=== PATIENT | male | born 1950 | race Caucasian/White ===

== ENCOUNTER 2019-12-21 13:54 | Inpatient (IN) ==
[2019-12-21] MEDS ORDERED: Nitroglycerin 0.4 MG TAB.SUBL SL PRN (14:37)
[2019-12-21] MEDS ORDERED: Furosemide 40 MG/4 ML VIAL IVP ONE ×2 (14:38→18:15)
[2019-12-21 15:35] LABS: Basophils % 0.5 %; Eosinophils # 0.2 K/mcL (0.0-0.6); Eosinophils % 3.1 %; Hematocrit 36.6 % (37.5-50.1); Immature Granulocytes % 0.3 % (0-4); Immature Platelets 6.9 % (1.1-6.1); Lymphocytes # 0.9 K/mcL (0.6-4.6); Lymphocytes % 13.8 %; Mean Corpuscular HGB Conc 30.1 g/dL (31.6-35.5); Mean Corpuscular Hemoglobin 25.8 pg (28.0-33.3); Mean Corpuscular Volume 85.7 fL (83.0-100.0); Mean Platelet Volume 12.6 fL (9.4-12.4); Monocytes % 8.4 %; Neutrophils # 4.8 K/mcL (1.6-8.9); Red Blood Count 4.27 M/mcL (4.19-5.50); Red Cell Distribution Width 17.2 % (11.5-14.5); Segmented Neutrophils % 73.9 %; White Blood Count 6.5 K/mcL (4.3-11.1)
[2019-12-21 15:37] LABS: INR 1.4; Prothrombin Time 16.2 Seconds (9.4-12.1)
[2019-12-21 15:40] LABS: Activated Partial Thrombo Time 34.7 Seconds (26.0-36.0)
[2019-12-21 15:50] LABS: Monocytes # 0.6 K/mcL (0.0-1.3)
[2019-12-21 15:51] LABS: Platelet Count 92 K/mcL (140-400); Platelet Estimate Decreased (Normal)
[2019-12-21 15:52] LABS: Calcium 8.8 mg/dL (8.6-10.3); Potassium 4.4 mEq/L (3.5-5.1)
[2019-12-21 16:02] LABS: Troponin I 0.05 ng/mL (< 0.04)
[2019-12-21] MEDS ORDERED: Naloxone 0.4 MG/ML INJ IVP PRN (17:30)
[2019-12-21] MEDS ORDERED: Bumetanide 1 MG TABLET PO SCH (17:45)
[2019-12-21 18:13] LABS: Chol/HDL Ratio 9.4 (0-4.9); Magnesium 2.1 mg/dL (1.6-2.6); Phosphorous 3.5 mg/dL (2.7-4.5)
[2019-12-21] MEDS: Aspirin Enteric Coated 81 MG Tablet PO SCH (18:24)
[2019-12-21] MEDS: carvediloL 6.25 MG TABLET PO SCH (18:24)
[2019-12-21] MEDS ORDERED: D5% in Water 1,000 ML IVC PRN (18:26)
[2019-12-21] MEDS ORDERED: Dextrose Gel 15 GM/37.5 ML TUBE PO PRN ×2 (18:26)
[2019-12-21] MEDS ORDERED: *HR* Dextrose 50 % in Water (Syg) 50 ML SYRINGE IVP PRN (18:26)
[2019-12-21] MEDS: Insulin LISPRO 300 UNITS/3 ML VIAL SQ SCH (20:02)
[2019-12-21] MEDS: rOPINIRole 1 MG TABLET PO SCH (20:08)
[2019-12-21] MEDS: Insulin DETEMIR 100 UNIT/ML X5UNITS SQ SCH (20:08)
[2019-12-22 04:45] LABS: Basophils % 0.6 %; Red Blood Count 4.16 M/mcL (4.19-5.50); Red Cell Distribution Width 17.2 % (11.5-14.5)
[2019-12-22 04:47] LABS: Eosinophils # 0.2 K/mcL (0.0-0.6); Eosinophils % 3.8 %; Hematocrit 35.1 % (37.5-50.1); Hemoglobin 10.8 g/dL (12.9-16.9); Immature Granulocytes % 0.5 % (0-4); Immature Platelets 8.5 % (1.1-6.1); Lymphocytes % 15.3 %; Mean Corpuscular HGB Conc 30.8 g/dL (31.6-35.5); Mean Corpuscular Volume 84.4 fL (83.0-100.0); Mean Platelet Volume 12.3 fL (9.4-12.4); Monocytes # 0.6 K/mcL (0.0-1.3); Monocytes % 8.7 %; Neutrophils # 4.5 K/mcL (1.6-8.9); Segmented Neutrophils % 71.1 %; White Blood Count 6.3 K/mcL (4.3-11.1)
[2019-12-22 04:53] LABS: INR 1.4; Prothrombin Time 16.4 Seconds (9.4-12.1)
[2019-12-22 05:03] LABS: Calcium 8.8 mg/dL (8.6-10.3)
[2019-12-22 05:09] LABS: Platelet Count 95 K/mcL (140-400)
[2019-12-22] MEDS ORDERED: lisinopriL 20 MG TABLET PO SCH ×2 (09:00)
[2019-12-22] MEDS: Isosorbide MONOnitrate (24 HR) 60 MG TAB.ER.24H PO SCH (09:38)
[2019-12-22] MEDS: Furosemide 40 MG/4 ML VIAL IVP SCH ×2 (09:39→16:30)
[2019-12-22] MEDS: Insulin LISPRO 300 UNITS/3 ML VIAL SQ SCH ×4 (09:39→20:55)
[2019-12-22] MEDS: carvediloL 6.25 MG TABLET PO SCH ×3 (09:40→17:45)
[2019-12-22] MEDS: metOLazone 2.5 MG TABLET PO SCH (09:41)
[2019-12-22] MEDS: Aspirin Enteric Coated 81 MG Tablet PO SCH (16:30)
[2019-12-22] MEDS: Insulin DETEMIR 100 UNIT/ML X5UNITS SQ SCH (21:01)
[2019-12-22] MEDS: rOPINIRole 1 MG TABLET PO SCH (21:01)
[2019-12-23 02:08] LABS: Basophils % 0.7 %; Eosinophils # 0.2 K/mcL (0.0-0.6); Eosinophils % 3.8 %; Hematocrit 36.5 % (37.5-50.1); Hemoglobin 10.8 g/dL (12.9-16.9); Immature Granulocytes % 0.3 % (0-4); Lymphocytes # 1.1 K/mcL (0.6-4.6); Lymphocytes % 18.5 %; Mean Corpuscular HGB Conc 29.6 g/dL (31.6-35.5); Mean Corpuscular Hemoglobin 25.5 pg (28.0-33.3); Mean Corpuscular Volume 86.3 fL (83.0-100.0); Monocytes # 0.5 K/mcL (0.0-1.3); Monocytes % 8.2 %; Neutrophils # 4.2 K/mcL (1.6-8.9); Platelet Count 106 K/mcL (140-400); Red Blood Count 4.23 M/mcL (4.19-5.50); Red Cell Distribution Width 17.2 % (11.5-14.5); Segmented Neutrophils % 68.5 %; White Blood Count 6.1 K/mcL (4.3-11.1)
[2019-12-23 02:23] LABS: Calcium 9.1 mg/dL (8.6-10.3); Potassium 4.2 mEq/L (3.5-5.1)
[2019-12-23] MEDS: Furosemide 40 MG/4 ML VIAL IVP SCH ×2 (07:59→16:34)
[2019-12-23] MEDS: Isosorbide MONOnitrate (24 HR) 60 MG TAB.ER.24H PO SCH (07:59)
[2019-12-23] MEDS: carvediloL 6.25 MG TABLET PO SCH ×2 (07:59→16:34)
[2019-12-23] MEDS: Insulin LISPRO 300 UNITS/3 ML VIAL SQ SCH ×4 (07:59→21:05)
[2019-12-23] MEDS ORDERED: Furosemide 20 MG/2 ML VIAL IVP ONE (11:07)
[2019-12-23] MEDS ORDERED: Acetaminophen 325 MG TABLET PO PRN (12:57)
[2019-12-23] MEDS: Aspirin Enteric Coated 81 MG Tablet PO SCH (16:34)
[2019-12-23] MEDS: rOPINIRole 1 MG TABLET PO SCH (21:05)
[2019-12-23] MEDS: Insulin DETEMIR 100 UNIT/ML X5UNITS SQ SCH (21:19)
[2019-12-24 06:50] LABS: Immature Granulocytes % 0.3 % (0-4); Platelet Count 109 K/mcL (140-400)
[2019-12-24 06:52] LABS: Basophils % 0.5 %; Eosinophils # 0.3 K/mcL (0.0-0.6); Hematocrit 38.3 % (37.5-50.1); Hemoglobin 11.5 g/dL (12.9-16.9); Immature Platelets 7.3 % (1.1-6.1); Lymphocytes # 0.9 K/mcL (0.6-4.6); Lymphocytes % 14.9 %; Mean Corpuscular Hemoglobin 25.4 pg (28.0-33.3); Mean Corpuscular Volume 84.7 fL (83.0-100.0); Monocytes # 0.5 K/mcL (0.0-1.3); Monocytes % 7.8 %; Neutrophils # 4.6 K/mcL (1.6-8.9); Red Blood Count 4.52 M/mcL (4.19-5.50); Red Cell Distribution Width 17.1 % (11.5-14.5); Segmented Neutrophils % 72.5 %; White Blood Count 6.3 K/mcL (4.3-11.1)
[2019-12-24 07:15] LABS: Calcium 9.5 mg/dL (8.6-10.3)
[2019-12-24] MEDS: Insulin LISPRO 300 UNITS/3 ML VIAL SQ SCH ×4 (07:25→20:06)
[2019-12-24] MEDS: carvediloL 6.25 MG TABLET PO SCH ×2 (07:33→16:27)
[2019-12-24] MEDS: Furosemide 40 MG/4 ML VIAL IVP SCH ×2 (07:33→16:27)
[2019-12-24] MEDS: Isosorbide MONOnitrate (24 HR) 60 MG TAB.ER.24H PO SCH (07:33)
[2019-12-24] MEDS ORDERED: Furosemide 20 MG/2 ML VIAL IVP ONE ×2 (08:08→18:00)
[2019-12-24] MEDS: Aspirin Enteric Coated 81 MG Tablet PO SCH (17:56)
[2019-12-24] MEDS: Insulin DETEMIR 100 UNIT/ML X5UNITS SQ SCH (20:07)
[2019-12-24] MEDS: rOPINIRole 1 MG TABLET PO SCH (20:07)
[2019-12-25 02:46] LABS: Basophils % 0.6 %; Eosinophils # 0.2 K/mcL (0.0-0.6); Eosinophils % 3.6 %; Hematocrit 37.4 % (37.5-50.1); Hemoglobin 11.3 g/dL (12.9-16.9); Immature Granulocytes % 0.5 % (0-4); Immature Platelets 5.6 % (1.1-6.1); Lymphocytes # 1.1 K/mcL (0.6-4.6); Lymphocytes % 16.2 %; Mean Corpuscular HGB Conc 30.2 g/dL (31.6-35.5); Mean Corpuscular Hemoglobin 25.5 pg (28.0-33.3); Mean Corpuscular Volume 84.4 fL (83.0-100.0); Mean Platelet Volume 12.1 fL (9.4-12.4); Monocytes # 0.6 K/mcL (0.0-1.3); Monocytes % 8.6 %; Neutrophils # 4.7 K/mcL (1.6-8.9); Platelet Count 108 K/mcL (140-400); Red Blood Count 4.43 M/mcL (4.19-5.50); Red Cell Distribution Width 17.1 % (11.5-14.5); Segmented Neutrophils % 70.5 %; White Blood Count 6.6 K/mcL (4.3-11.1)
[2019-12-25 03:04] LABS: Calcium 9.7 mg/dL (8.6-10.3); Potassium 3.8 mEq/L (3.5-5.1)
[2019-12-25] MEDS: Isosorbide MONOnitrate (24 HR) 60 MG TAB.ER.24H PO SCH (09:21)
[2019-12-25] MEDS: Furosemide 40 MG/4 ML VIAL IVP SCH (09:21)
[2019-12-25] MEDS: Insulin LISPRO 300 UNITS/3 ML VIAL SQ SCH ×4 (09:21→20:03)
[2019-12-25] MEDS: carvediloL 6.25 MG TABLET PO SCH ×2 (09:21→16:35)
[2019-12-25] MEDS ORDERED: Bumetanide 1 MG TABLET PO SCH (11:30)
[2019-12-25] MEDS: Bumetanide 1 MG TABLET PO SCH (16:35)
[2019-12-25] MEDS: Aspirin Enteric Coated 81 MG Tablet PO SCH (16:35)
[2019-12-25] MEDS ORDERED: carvediloL 6.25 MG TABLET PO SCH (17:00)
[2019-12-25] MEDS: Insulin DETEMIR 100 UNIT/ML X5UNITS SQ SCH (20:00)
[2019-12-25] MEDS: rOPINIRole 1 MG TABLET PO SCH (20:00)
[2019-12-26 05:42] LABS: Basophils % 0.6 %; Eosinophils # 0.3 K/mcL (0.0-0.6); Eosinophils % 3.8 %; Hematocrit 38.5 % (37.5-50.1); Hemoglobin 11.6 g/dL (12.9-16.9); Immature Granulocytes % 0.5 % (0-4); Lymphocytes % 15.1 %; Mean Corpuscular HGB Conc 30.1 g/dL (31.6-35.5); Mean Corpuscular Hemoglobin 25.8 pg (28.0-33.3); Mean Corpuscular Volume 85.6 fL (83.0-100.0); Mean Platelet Volume 11.9 fL (9.4-12.4); Monocytes # 0.7 K/mcL (0.0-1.3); Monocytes % 11.1 %; Neutrophils # 4.5 K/mcL (1.6-8.9); Platelet Count 116 K/mcL (140-400); Red Cell Distribution Width 17.2 % (11.5-14.5); Segmented Neutrophils % 68.9 %; White Blood Count 6.5 K/mcL (4.3-11.1)
[2019-12-26 05:49] LABS: Calcium 9.4 mg/dL (8.6-10.3)
[2019-12-26 07:46] VITALS: BP 189/80
[2019-12-26] MEDS: Bumetanide 1 MG TABLET PO SCH (07:53)
[2019-12-26] MEDS: carvediloL 6.25 MG TABLET PO SCH (07:53)
[2019-12-26] MEDS: metOLazone 2.5 MG TABLET PO SCH (07:54)
[2019-12-26] MEDS: Isosorbide MONOnitrate (24 HR) 60 MG TAB.ER.24H PO SCH (07:54)
[2019-12-26] MEDS: Insulin LISPRO 300 UNITS/3 ML VIAL SQ SCH (07:54)
== END 2019-12-26 09:12 | disposition home or self-care (01) | DRG 291 ==
LOC: 3BNU 13:54 → EMEROOARM 13:54 → 3BNU 18:15 → SUATTDRO 18:53
PROVIDERS: ADMIT Internal Medicine; ATTEND Internal Medicine

== ENCOUNTER 2020-06-13 15:03 | Inpatient (IN) ==
[2020-06-13 16:36] LABS: Basophils # 0.1 K/mcL (0.0-0.2); Basophils % 0.7 %; Eosinophils # 0.1 K/mcL (0.0-0.6); Eosinophils % 1.3 %; Hematocrit 38.1 % (37.5-50.1); Hemoglobin 11.4 g/dL (12.9-16.9); Immature Granulocytes % 0.5 % (0-4); Lymphocytes % 8.7 %; Mean Corpuscular HGB Conc 29.9 g/dL (31.6-35.5); Mean Corpuscular Hemoglobin 25.8 pg (28.0-33.3); Mean Corpuscular Volume 86.2 fL (83.0-100.0); Mean Platelet Volume 11.9 fL (9.4-12.4); Monocytes # 0.9 K/mcL (0.0-1.3); Monocytes % 8.2 %; Neutrophils # 8.8 K/mcL (1.6-8.9); Platelet Count 135 K/mcL (140-400); Red Blood Count 4.42 M/mcL (4.19-5.50); Segmented Neutrophils % 80.6 %; White Blood Count 10.9 K/mcL (4.3-11.1)
[2020-06-13 17:02] LABS: Calcium 9.5 mg/dL (8.6-10.3); Potassium 4.9 mEq/L (3.5-5.1); Troponin I 0.07 ng/mL (< 0.04)
[2020-06-13] MEDS ORDERED: Ampicillin/Sulbactam 1,500 MG in 0.9 % Sodium Chloride Mini Bag 100 ML IVPB ONE (17:31)
[2020-06-13] MEDS ORDERED: Furosemide 40 MG/4 ML VIAL IVP ONE (17:31)
[2020-06-13] MEDS ORDERED: Naloxone 0.4 MG/ML INJ IVP PRN (18:22)
[2020-06-13] MEDS ORDERED: Acetaminophen 325 MG TABLET PO PRN (18:22)
[2020-06-13] MEDS ORDERED: Ondansetron ODT 4 MG TAB.RAPDIS SL PRN (18:22)
[2020-06-13] MEDS ORDERED: *HR* Dextrose 50 % in Water (Vial) 50 ML VIAL IVP PRN (18:53)
[2020-06-13] MEDS ORDERED: Dextrose Gel 15 GM/37.5 ML TUBE PO PRN ×2 (18:53)
[2020-06-13] MEDS ORDERED: D5% in Water 1,000 ML IVC PRN (18:53)
[2020-06-13] MEDS: Furosemide 40 MG/4 ML VIAL IVP SCH (22:05)
[2020-06-13] MEDS: carvediloL 6.25 MG TABLET PO SCH (22:06)
[2020-06-13] MEDS: rOPINIRole 1 MG TABLET PO SCH (22:06)
[2020-06-13] MEDS: *HR* HYDROcodone/Acet 5/325 mg TABLET PO PRN (22:13)
[2020-06-13] MEDS: Insulin LISPRO 300 UNITS/3 ML VIAL SQ SCH (22:15)
[2020-06-14] MEDS: Piperacillin/Tazobactam 3.375 GM in 0.9 % Sodium Chloride Mini Bag 100 ML IVPB SCH ×4 (00:35→23:35)
[2020-06-14 05:10] LABS: Basophils # 0.1 K/mcL (0.0-0.2); Basophils % 0.6 %; Eosinophils # 0.1 K/mcL (0.0-0.6); Eosinophils % 1.3 %; Hematocrit 31.9 % (37.5-50.1); Immature Granulocytes % 0.4 % (0-4); Lymphocytes % 9.7 %; Mean Corpuscular Hemoglobin 26.9 pg (28.0-33.3); Mean Corpuscular Volume 86.7 fL (83.0-100.0); Mean Platelet Volume 12.2 fL (9.4-12.4); Monocytes % 9.9 %; Neutrophils # 7.7 K/mcL (1.6-8.9); Platelet Count 102 K/mcL (140-400); Red Blood Count 3.68 M/mcL (4.19-5.50); Segmented Neutrophils % 78.1 %; White Blood Count 9.9 K/mcL (4.3-11.1)
[2020-06-14 05:11] LABS: Hemoglobin 9.9 g/dL (12.9-16.9)
[2020-06-14] MEDS: *HR* Heparin 5,000 UNIT/ML VIAL SQ SCH ×2 (05:11→18:06)
[2020-06-14 05:33] LABS: Calcium 8.7 mg/dL (8.6-10.3); Potassium 4.2 mEq/L (3.5-5.1); Troponin I 0.06 ng/mL (< 0.04)
[2020-06-14] MEDS: carvediloL 6.25 MG TABLET PO SCH ×2 (08:07→18:06)
[2020-06-14] MEDS: Insulin LISPRO 300 UNITS/3 ML VIAL SQ SCH ×4 (08:07→21:12)
[2020-06-14] MEDS: lisinopriL 20 MG TABLET PO SCH (08:08)
[2020-06-14] MEDS: Furosemide 40 MG/4 ML VIAL IVP SCH ×2 (08:13→18:06)
[2020-06-14] MEDS: Isosorbide MONOnitrate (24 HR) 60 MG TAB.ER.24H PO SCH (08:13)
[2020-06-14] MEDS: Cholecalciferol (D-3) 1,000 UNIT (25MCG) TABLET PO SCH (08:13)
[2020-06-14] MEDS: Aspirin Enteric Coated 81 MG Tablet PO SCH (08:13)
[2020-06-14] MEDS: Insulin DETEMIR 100 UNIT/ML X5UNITS SQ SCH (08:14)
[2020-06-14] MEDS: *HR* HYDROcodone/Acet 5/325 mg TABLET PO PRN ×3 (08:22→21:19)
[2020-06-14] MEDS ORDERED: FLUoxetine 20 MG CAPSULE PO SCH (09:00)
[2020-06-14] MEDS: rOPINIRole 1 MG TABLET PO SCH (21:12)
[2020-06-15] MEDS: *HR* Heparin 5,000 UNIT/ML VIAL SQ SCH ×2 (05:22→17:27)
[2020-06-15 06:10] LABS: Hematocrit 30.8 % (37.5-50.1); Hemoglobin 9.3 g/dL (12.9-16.9); Mean Corpuscular HGB Conc 30.2 g/dL (31.6-35.5); Mean Platelet Volume 11.5 fL (9.4-12.4); Platelet Count 100 K/mcL (140-400); Red Blood Count 3.58 M/mcL (4.19-5.50); Red Cell Distribution Width 16.9 % (11.5-14.5); White Blood Count 9.4 K/mcL (4.3-11.1)
[2020-06-15 06:28] LABS: Calcium 8.4 mg/dL (8.6-10.3)
[2020-06-15] MEDS: Aspirin Enteric Coated 81 MG Tablet PO SCH (08:37)
[2020-06-15] MEDS: Isosorbide MONOnitrate (24 HR) 60 MG TAB.ER.24H PO SCH (08:37)
[2020-06-15] MEDS: Insulin DETEMIR 100 UNIT/ML X5UNITS SQ SCH (08:37)
[2020-06-15] MEDS: Cholecalciferol (D-3) 1,000 UNIT (25MCG) TABLET PO SCH (08:37)
[2020-06-15] MEDS: lisinopriL 20 MG TABLET PO SCH (08:37)
[2020-06-15] MEDS: Insulin LISPRO 300 UNITS/3 ML VIAL SQ SCH ×4 (08:38→19:49)
[2020-06-15] MEDS: Furosemide 40 MG/4 ML VIAL IVP SCH (08:38)
[2020-06-15] MEDS: FLUoxetine 20 MG CAPSULE PO SCH (08:38)
[2020-06-15] MEDS: Piperacillin/Tazobactam 3.375 GM in 0.9 % Sodium Chloride Mini Bag 100 ML IVPB SCH ×2 (08:38→16:02)
[2020-06-15] MEDS: carvediloL 6.25 MG TABLET PO SCH ×2 (08:38→17:25)
[2020-06-15] MEDS: *HR* HYDROcodone/Acet 5/325 mg TABLET PO PRN ×2 (08:55→17:25)
[2020-06-15] MEDS: MethylPREDNISolone 40 MG/ML VIAL IVP SCH ×2 (16:02→23:58)
[2020-06-15] MEDS: cefTRIAXone 2,000 MG in Water for inj. (sterile) 20 ML IVP SCH (17:26)
[2020-06-15] MEDS: rOPINIRole 1 MG TABLET PO SCH (19:48)
[2020-06-16 02:19] LABS: Calcium 8.5 mg/dL (8.6-10.3); Phosphorous 5.9 mg/dL (2.7-4.5); Potassium 4.5 mEq/L (3.5-5.1)
[2020-06-16] MEDS: *HR* HYDROcodone/Acet 5/325 mg TABLET PO PRN (02:24)
[2020-06-16 03:15] LABS: Basophils % 0.1 %; Eosinophils % 0.1 %; Hematocrit 31.4 % (37.5-50.1); Hemoglobin 9.6 g/dL (12.9-16.9); Lymphocytes # 0.3 K/mcL (0.6-4.6); Lymphocytes % 3.8 %; Mean Corpuscular HGB Conc 30.6 g/dL (31.6-35.5); Mean Corpuscular Volume 85.1 fL (83.0-100.0); Mean Platelet Volume 11.7 fL (9.4-12.4); Monocytes # 0.1 K/mcL (0.0-1.3); Monocytes % 1.4 %; Neutrophils # 7.6 K/mcL (1.6-8.9); Platelet Count 116 K/mcL (140-400); Red Blood Count 3.69 M/mcL (4.19-5.50); Red Cell Distribution Width 16.6 % (11.5-14.5); Segmented Neutrophils % 93.6 %; White Blood Count 8.1 K/mcL (4.3-11.1)
[2020-06-16] MEDS: *HR* Heparin 5,000 UNIT/ML VIAL SQ SCH ×2 (05:06→16:14)
[2020-06-16] MEDS: FLUoxetine 20 MG CAPSULE PO SCH (08:03)
[2020-06-16] MEDS: lisinopriL 20 MG TABLET PO SCH (08:03)
[2020-06-16] MEDS: Isosorbide MONOnitrate (24 HR) 60 MG TAB.ER.24H PO SCH (08:03)
[2020-06-16] MEDS: Aspirin Enteric Coated 81 MG Tablet PO SCH (08:03)
[2020-06-16] MEDS: Cholecalciferol (D-3) 1,000 UNIT (25MCG) TABLET PO SCH (08:03)
[2020-06-16] MEDS: carvediloL 6.25 MG TABLET PO SCH ×2 (08:03→16:14)
[2020-06-16] MEDS: 0.9 % Sodium Chloride 1,000 ML IVC SCH ×2 (08:04→19:15)
[2020-06-16] MEDS: MethylPREDNISolone 40 MG/ML VIAL IVP SCH ×2 (08:04→16:13)
[2020-06-16] MEDS: Insulin LISPRO 300 UNITS/3 ML VIAL SQ SCH ×4 (08:11→20:10)
[2020-06-16] MEDS: Insulin DETEMIR 100 UNIT/ML X5UNITS SQ SCH (08:15)
[2020-06-16] MEDS ORDERED: Furosemide 40 MG/4 ML VIAL IVP SCH (09:00)
[2020-06-16 14:30] LABS: Calcium 8.4 mg/dL (8.6-10.3); Potassium 4.4 mEq/L (3.5-5.1)
[2020-06-16] MEDS: cefTRIAXone 2,000 MG in Water for inj. (sterile) 20 ML IVP SCH (16:14)
[2020-06-16] MEDS ORDERED: 0.9 % Sodium Chloride 1,000 ML IVC SCH (20:00)
[2020-06-16] MEDS: hydrALAZINE 10 MG TABLET PO PRN (20:09)
[2020-06-16] MEDS: rOPINIRole 1 MG TABLET PO SCH (20:09)
[2020-06-17 02:03] LABS: Hematocrit 31.4 % (37.5-50.1); Hemoglobin 9.6 g/dL (12.9-16.9); Mean Corpuscular HGB Conc 30.6 g/dL (31.6-35.5); Mean Corpuscular Volume 85.1 fL (83.0-100.0); Mean Platelet Volume 12.1 fL (9.4-12.4); Platelet Count 120 K/mcL (140-400); Red Blood Count 3.69 M/mcL (4.19-5.50); Red Cell Distribution Width 16.4 % (11.5-14.5); White Blood Count 10.5 K/mcL (4.3-11.1)
[2020-06-17 02:19] LABS: Calcium 8.2 mg/dL (8.6-10.3); Potassium 4.6 mEq/L (3.5-5.1)
[2020-06-17] MEDS: MethylPREDNISolone 40 MG/ML VIAL IVP SCH (04:22)
[2020-06-17] MEDS: *HR* Heparin 5,000 UNIT/ML VIAL SQ SCH ×2 (04:23→16:56)
[2020-06-17] MEDS: 0.9 % Sodium Chloride 1,000 ML IVC SCH ×3 (04:23→23:47)
[2020-06-17] MEDS: *HR* HYDROcodone/Acet 5/325 mg TABLET PO PRN (04:25)
[2020-06-17] MEDS: Isosorbide MONOnitrate (24 HR) 60 MG TAB.ER.24H PO SCH (08:33)
[2020-06-17] MEDS: Cholecalciferol (D-3) 1,000 UNIT (25MCG) TABLET PO SCH (08:33)
[2020-06-17] MEDS: carvediloL 6.25 MG TABLET PO SCH ×2 (08:34→16:50)
[2020-06-17] MEDS: Insulin LISPRO 300 UNITS/3 ML VIAL SQ SCH ×4 (08:34→19:56)
[2020-06-17] MEDS: FLUoxetine 20 MG CAPSULE PO SCH (08:34)
[2020-06-17] MEDS: Insulin DETEMIR 100 UNIT/ML X5UNITS SQ SCH (08:34)
[2020-06-17] MEDS: Aspirin Enteric Coated 81 MG Tablet PO SCH (08:34)
[2020-06-17] MEDS: predniSONE 20 MG TABLET PO SCH (13:26)
[2020-06-17] MEDS: cefTRIAXone 2,000 MG in Water for inj. (sterile) 20 ML IVP SCH (16:51)
[2020-06-17] MEDS: rOPINIRole 1 MG TABLET PO SCH (19:56)
[2020-06-17] MEDS: hydrALAZINE 10 MG TABLET PO PRN (20:17)
[2020-06-18] MEDS: 0.9 % Sodium Chloride 1,000 ML IVC SCH (02:45)
[2020-06-18] MEDS: *HR* Heparin 5,000 UNIT/ML VIAL SQ SCH (05:19)
[2020-06-18 05:56] LABS: Calcium 7.9 mg/dL (8.6-10.3); Potassium 4.6 mEq/L (3.5-5.1)
[2020-06-18 07:29] VITALS: BP 173/88
[2020-06-18] MEDS: FLUoxetine 20 MG CAPSULE PO SCH (08:39)
[2020-06-18] MEDS: carvediloL 6.25 MG TABLET PO SCH (08:39)
[2020-06-18] MEDS: Cholecalciferol (D-3) 1,000 UNIT (25MCG) TABLET PO SCH (08:39)
[2020-06-18] MEDS: Isosorbide MONOnitrate (24 HR) 60 MG TAB.ER.24H PO SCH (08:39)
[2020-06-18] MEDS: Insulin DETEMIR 100 UNIT/ML X5UNITS SQ SCH (08:40)
[2020-06-18] MEDS: Aspirin Enteric Coated 81 MG Tablet PO SCH (08:40)
[2020-06-18] MEDS: Insulin LISPRO 300 UNITS/3 ML VIAL SQ SCH (08:40)
[2020-06-18] MEDS: predniSONE 20 MG TABLET PO SCH (08:40)
== END 2020-06-18 10:12 | disposition home or self-care (01) | DRG 698 ==
LOC: EMEROOARM 15:03 → 2ANU 15:03 → SUATTDRO 17:59 → 2ANU 19:43
PROVIDERS: ADMIT Family Medicine; ATTEND Internal Medicine

== ENCOUNTER 2020-10-09 11:57 | Observation (INO) ==
[2020-10-09] MEDS ORDERED: Bumetanide 1 MG/4 ML VIAL IVP ONE (13:07)
[2020-10-09] MEDS ORDERED: Morphine Sulfate 2 MG/ML SYRINGE IVP ONE (13:24)
[2020-10-09] MEDS ORDERED: Ondansetron 4 MG/2 ML VIAL IVP ONE (13:24)
[2020-10-09 13:29] LABS: Basophils % 0.5 %; Eosinophils # 0.2 K/mcL (0.0-0.6); Eosinophils % 2.2 %; Hematocrit 34.5 % (37.5-50.1); Hemoglobin 10.7 g/dL (12.9-16.9); Immature Granulocytes % 1.2 % (0-4); Lymphocytes # 0.9 K/mcL (0.6-4.6); Lymphocytes % 11.3 %; Mean Corpuscular Hemoglobin 27.7 pg (28.0-33.3); Mean Corpuscular Volume 89.4 fL (83.0-100.0); Mean Platelet Volume 11.8 fL (9.4-12.4); Monocytes # 0.6 K/mcL (0.0-1.3); Monocytes % 8.4 %; Neutrophils # 5.8 K/mcL (1.6-8.9); Platelet Count 104 K/mcL (140-400); Red Blood Count 3.86 M/mcL (4.19-5.50); Red Cell Distribution Width 15.1 % (11.5-14.5); Segmented Neutrophils % 76.4 %; White Blood Count 7.6 K/mcL (4.3-11.1)
[2020-10-09 13:41] LABS: INR 1.3
[2020-10-09 13:47] LABS: Calcium 9.2 mg/dL (8.6-10.3); Potassium 5.8 mEq/L (3.5-5.1)
[2020-10-09 14:00] LABS: Troponin I 0.05 ng/mL (< 0.04)
[2020-10-09 14:22] LABS: Adenovirus Not Detected (Not Detect); Bordetella Pertussis Not Detected (Not Detect); Chlamydophila pneumoniae Not Detected (Not Detect); Coronavirus 229E Not Detected (Not Detect); Coronavirus HKU1 Not Detected (Not Detect); Coronavirus NL63 Not Detected (Not Detect); Coronavirus OC43 Not Detected (Not Detect); Human Metapneumovirus Not Detected (Not Detect); Human Rhinovirus/Enterovirus Not Detected (Not Detect); Influenza A Subtype 2009 H1 Not Detected (Not Detect); Influenza B Not Detected (Not Detect); Mycoplasma pneumoniae Not Detected (Not Detect); Parainfluenza Virus 1 Not Detected (Not Detect); Parainfluenza Virus 2 Not Detected (Not Detect); Parainfluenza Virus 3 Not Detected (Not Detect); Parainfluenza Virus 4 Not Detected (Not Detect); Respiratory Syncytial Virus Not Detected (Not Detect); SARS-CoV-2 Not Detected (Not Detect)
[2020-10-09] MEDS ORDERED: Aspirin 325 MG TABLET PO ONE (14:42)
[2020-10-09] MEDS ORDERED: Calcium Gluconate 1gm/50mL BAG IVPB ONE (14:45)
[2020-10-09] MEDS ORDERED: *HR* Dextrose 50 % in Water (Vial) 50 ML VIAL IVP ONE (14:45)
[2020-10-09] MEDS ORDERED: Insulin Human Regular 5 UNIT in 0.9 % Sodium Chloride 10 ML IV ONE (14:45)
[2020-10-09] MEDS ORDERED: Aspirin Enteric Coated 81 MG Tablet PO SCH (15:30)
[2020-10-09] MEDS ORDERED: *HR* Dextrose 50 % in Water (Vial) 50 ML VIAL IVP PRN (15:31)
[2020-10-09] MEDS ORDERED: D5% in Water 1,000 ML IVC PRN (15:31)
[2020-10-09] MEDS ORDERED: Dextrose Gel 15 GM/37.5 ML TUBE PO PRN ×2 (15:31)
[2020-10-09] MEDS ORDERED: Naloxone 0.4 MG/ML INJ IVP PRN (15:33)
[2020-10-09] MEDS ORDERED: FLU Vac QV 20-21 (6Month+)/PF 0.5 ML SYRINGE IM ONE (17:46)
[2020-10-09] MEDS: FLUoxetine 20 MG CAPSULE PO SCH (18:25)
[2020-10-09] MEDS: Bumetanide 1 MG TABLET PO SCH (18:25)
[2020-10-09] MEDS: carvediloL 6.25 MG TABLET PO SCH (18:25)
[2020-10-09] MEDS: *HR* Heparin 5,000 UNIT/ML VIAL SQ SCH (18:25)
[2020-10-09] MEDS: Isosorbide MONOnitrate (24 HR) 60 MG TAB.ER.24H PO SCH (18:26)
[2020-10-09] MEDS: lisinopriL 20 MG TABLET PO SCH (18:26)
[2020-10-09] MEDS: Insulin LISPRO 300 UNITS/3 ML VIAL SUBQ SCH ×2 (18:28→21:41)
[2020-10-09] MEDS: rOPINIRole 1 MG TABLET PO SCH (21:43)
[2020-10-09] MEDS: Insulin DETEMIR 100 UNIT/ML X5UNITS SUBQ SCH (23:58)
[2020-10-10 02:35] LABS: Basophils % 0.5 %; Eosinophils # 0.2 K/mcL (0.0-0.6); Eosinophils % 2.6 %; Hematocrit 32.7 % (37.5-50.1); Hemoglobin 10.3 g/dL (12.9-16.9); Immature Granulocytes % 0.9 % (0-4); Lymphocytes # 1.1 K/mcL (0.6-4.6); Lymphocytes % 13.2 %; Mean Corpuscular HGB Conc 31.5 g/dL (31.6-35.5); Mean Corpuscular Hemoglobin 27.8 pg (28.0-33.3); Mean Corpuscular Volume 88.4 fL (83.0-100.0); Mean Platelet Volume 11.7 fL (9.4-12.4); Monocytes # 0.8 K/mcL (0.0-1.3); Monocytes % 9.7 %; Neutrophils # 6.3 K/mcL (1.6-8.9); Red Cell Distribution Width 14.9 % (11.5-14.5); Segmented Neutrophils % 73.1 %; White Blood Count 8.6 K/mcL (4.3-11.1)
[2020-10-10 02:36] LABS: Platelet Count 98 K/mcL (140-400)
[2020-10-10 03:14] LABS: Calcium 9.1 mg/dL (8.6-10.3); Potassium 4.8 mEq/L (3.5-5.1)
[2020-10-10] MEDS: *HR* Heparin 5,000 UNIT/ML VIAL SQ SCH ×2 (06:17→17:22)
[2020-10-10] MEDS: Insulin LISPRO 300 UNITS/3 ML VIAL SUBQ SCH ×4 (07:35→21:01)
[2020-10-10] MEDS: Bumetanide 1 MG TABLET PO SCH ×2 (07:43→17:22)
[2020-10-10] MEDS: Isosorbide MONOnitrate (24 HR) 60 MG TAB.ER.24H PO SCH (07:43)
[2020-10-10] MEDS: carvediloL 6.25 MG TABLET PO SCH ×2 (07:43→17:22)
[2020-10-10] MEDS: Aspirin Enteric Coated 81 MG Tablet PO SCH (07:43)
[2020-10-10] MEDS: Cholecalciferol (D-3) 1,000 UNIT (25MCG) TABLET PO SCH (07:43)
[2020-10-10] MEDS: FLUoxetine 20 MG CAPSULE PO SCH (07:43)
[2020-10-10] MEDS ORDERED: Furosemide 40 MG/4 ML VIAL IVP ONE (09:00)
[2020-10-10] MEDS ORDERED: Acetaminophen 325 MG TABLET PO PRN (15:44)
[2020-10-10] MEDS: rOPINIRole 1 MG TABLET PO SCH (20:28)
[2020-10-10] MEDS: Insulin DETEMIR 100 UNIT/ML X5UNITS SUBQ SCH (20:29)
[2020-10-11 02:46] LABS: Basophils % 0.5 %; Eosinophils # 0.2 K/mcL (0.0-0.6); Eosinophils % 2.8 %; Hematocrit 35.1 % (37.5-50.1); Hemoglobin 10.7 g/dL (12.9-16.9); Immature Granulocytes % 1.5 % (0-4); Lymphocytes # 1.2 K/mcL (0.6-4.6); Lymphocytes % 15.4 %; Mean Corpuscular HGB Conc 30.5 g/dL (31.6-35.5); Mean Corpuscular Hemoglobin 27.2 pg (28.0-33.3); Mean Corpuscular Volume 89.3 fL (83.0-100.0); Mean Platelet Volume 11.9 fL (9.4-12.4); Monocytes # 0.7 K/mcL (0.0-1.3); Neutrophils # 5.3 K/mcL (1.6-8.9); Platelet Count 116 K/mcL (140-400); Red Blood Count 3.93 M/mcL (4.19-5.50); Segmented Neutrophils % 70.8 %; White Blood Count 7.5 K/mcL (4.3-11.1)
[2020-10-11 03:02] LABS: Albumin 3.6 g/dL (3.5-5.7); Calcium 9.1 mg/dL (8.6-10.3); Phosphorous 5.8 mg/dL (2.7-4.5); Potassium 4.3 mEq/L (3.5-5.1)
[2020-10-11] MEDS: *HR* Heparin 5,000 UNIT/ML VIAL SQ SCH ×2 (06:09→16:54)
[2020-10-11] MEDS: Insulin LISPRO 300 UNITS/3 ML VIAL SUBQ SCH ×4 (07:38→21:22)
[2020-10-11] MEDS: SODIUM ZIRCONIUM CYCLOSILICATE 5 GM POWD.PACK PO SCH (08:02)
[2020-10-11] MEDS: Bumetanide 1 MG TABLET PO SCH ×2 (08:04→16:53)
[2020-10-11] MEDS: Isosorbide MONOnitrate (24 HR) 60 MG TAB.ER.24H PO SCH (08:04)
[2020-10-11] MEDS: Cholecalciferol (D-3) 1,000 UNIT (25MCG) TABLET PO SCH (08:04)
[2020-10-11] MEDS: Aspirin Enteric Coated 81 MG Tablet PO SCH (08:04)
[2020-10-11] MEDS: carvediloL 6.25 MG TABLET PO SCH ×2 (08:04→16:53)
[2020-10-11] MEDS: FLUoxetine 20 MG CAPSULE PO SCH (08:04)
[2020-10-11] MEDS ORDERED: Ferumoxytol 510 MG in 0.9 % Sodium Chloride 100 ML IVPB ONE (08:28)
[2020-10-11] MEDS ORDERED: ROPINIROLE HCL 5 MG PO SCH (21:00)
[2020-10-11] MEDS ORDERED: rOPINIRole 3 MG, rOPINIRole 2 MG PO SCH (21:00)
[2020-10-11] MEDS: Insulin DETEMIR 100 UNIT/ML X5UNITS SUBQ SCH (21:22)
[2020-10-12] MEDS: *HR* Heparin 5,000 UNIT/ML VIAL SQ SCH (05:44)
[2020-10-12 06:53] LABS: Basophils # 0.1 K/mcL (0.0-0.2); Basophils % 0.7 %; Eosinophils # 0.2 K/mcL (0.0-0.6); Eosinophils % 2.8 %; Hematocrit 35.9 % (37.5-50.1); Hemoglobin 11.3 g/dL (12.9-16.9); Immature Granulocytes % 1.1 % (0-4); Lymphocytes # 1.3 K/mcL (0.6-4.6); Lymphocytes % 16.1 %; Mean Corpuscular HGB Conc 31.5 g/dL (31.6-35.5); Mean Corpuscular Hemoglobin 27.4 pg (28.0-33.3); Mean Corpuscular Volume 87.1 fL (83.0-100.0); Mean Platelet Volume 11.7 fL (9.4-12.4); Monocytes # 0.8 K/mcL (0.0-1.3); Neutrophils # 5.7 K/mcL (1.6-8.9); Platelet Count 125 K/mcL (140-400); Red Blood Count 4.12 M/mcL (4.19-5.50); Red Cell Distribution Width 14.9 % (11.5-14.5); Segmented Neutrophils % 69.3 %; White Blood Count 8.2 K/mcL (4.3-11.1)
[2020-10-12 07:12] LABS: Calcium 9.7 mg/dL (8.6-10.3); Potassium 4.1 mEq/L (3.5-5.1)
[2020-10-12 07:16] VITALS: BP 147/62
[2020-10-12] MEDS: Insulin LISPRO 300 UNITS/3 ML VIAL SUBQ SCH (07:33)
[2020-10-12] MEDS: FLUoxetine 20 MG CAPSULE PO SCH (09:03)
[2020-10-12] MEDS: Bumetanide 1 MG TABLET PO SCH (09:04)
[2020-10-12] MEDS: Cholecalciferol (D-3) 1,000 UNIT (25MCG) TABLET PO SCH (09:04)
[2020-10-12] MEDS: lisinopriL 20 MG TABLET PO SCH (09:04)
[2020-10-12] MEDS: carvediloL 6.25 MG TABLET PO SCH (09:04)
[2020-10-12] MEDS: Aspirin Enteric Coated 81 MG Tablet PO SCH (09:05)
[2020-10-12] MEDS: Isosorbide MONOnitrate (24 HR) 60 MG TAB.ER.24H PO SCH (09:05)
[2020-10-12] MEDS: SODIUM ZIRCONIUM CYCLOSILICATE 5 GM POWD.PACK PO SCH (09:05)
== END 2020-10-12 10:09 | disposition home or self-care (01) ==
LOC: EMEROOARM 11:57 → 2ANU 11:57 → SUATTDRO 16:30 → 2ANU 17:20
PROVIDERS: ADMIT Internal Medicine; ATTEND Internal Medicine

== ENCOUNTER 2020-11-30 09:13 | Inpatient (IN) ==
[2020-11-30 10:08] LABS: Basophils # 0.1 K/mcL (0.0-0.2); Basophils % 0.7 %; Eosinophils # 0.2 K/mcL (0.0-0.6); Eosinophils % 2.4 %; Hematocrit 34.3 % (37.5-50.1); Hemoglobin 10.5 g/dL (12.9-16.9); Immature Granulocytes % 0.5 % (0-4); Lymphocytes # 0.8 K/mcL (0.6-4.6); Lymphocytes % 10.8 %; Mean Corpuscular HGB Conc 30.6 g/dL (31.6-35.5); Mean Corpuscular Hemoglobin 27.4 pg (28.0-33.3); Mean Corpuscular Volume 89.6 fL (83.0-100.0); Monocytes # 0.6 K/mcL (0.0-1.3); Neutrophils # 5.7 K/mcL (1.6-8.9); Platelet Count 113 K/mcL (140-400); Red Blood Count 3.83 M/mcL (4.19-5.50); Red Cell Distribution Width 14.6 % (11.5-14.5); Segmented Neutrophils % 77.6 %; White Blood Count 7.4 K/mcL (4.3-11.1)
[2020-11-30] MEDS ORDERED: Furosemide 40 MG/4 ML VIAL IVP ONE ×2 (10:22→21:00)
[2020-11-30 10:24] LABS: Calcium 8.9 mg/dL (8.6-10.3); Potassium 3.7 mEq/L (3.5-5.1)
[2020-11-30 10:34] LABS: Troponin I 0.07 ng/mL (< 0.04)
[2020-11-30] MEDS ORDERED: Ondansetron ODT 4 MG TAB.RAPDIS SL PRN (11:31)
[2020-11-30] MEDS ORDERED: Acetaminophen 325 MG TABLET PO PRN (11:31)
[2020-11-30] MEDS ORDERED: Mag Hydrox/Al Hydrox/Simeth 30 ML UDC PO PRN (11:31)
[2020-11-30] MEDS ORDERED: Melatonin 3 MG TABLET PO PRN (11:31)
[2020-11-30] MEDS ORDERED: Naloxone 0.4 MG/ML INJ IVP PRN (11:37)
[2020-11-30] MEDS ORDERED: D5% in Water 1,000 ML IVC PRN (11:41)
[2020-11-30] MEDS ORDERED: *HR* Dextrose 50 % in Water (Vial) 50 ML VIAL IVP PRN (11:41)
[2020-11-30] MEDS ORDERED: Dextrose Gel 15 GM/37.5 ML TUBE PO PRN ×2 (11:41)
[2020-11-30 12:20] LABS: Albumin 3.5 g/dL (3.5-5.7); Albumin/Globulin Ratio 1.3 (1.1-2.2); Bilirubin,Direct 0.2 mg/dL (0.0-0.2); Bilirubin,Indirect 0.6 mg/dL (0.0-1.0); Bilirubin,Total 0.8 mg/dL (0.3-1.0); Globulin 2.8 g/dL (2.4-3.5); Total Protein 6.3 g/dL (6.4-8.9)
[2020-11-30] MEDS: Insulin LISPRO 300 UNITS/3 ML VIAL SUBQ SCH ×2 (16:50→20:35)
[2020-11-30] MEDS: carvediloL 6.25 MG TABLET PO SCH (16:56)
[2020-11-30] MEDS: rOPINIRole 1 MG TABLET PO SCH (20:25)
[2020-11-30] MEDS ORDERED: Bumetanide 1 MG TABLET PO SCH (21:00)
[2020-12-01] MEDS ORDERED: Bumetanide 1 MG TABLET PO SCH (09:00)
[2020-12-01] MEDS: Insulin LISPRO 300 UNITS/3 ML VIAL SUBQ SCH ×4 (09:00→21:25)
[2020-12-01] MEDS: Cholecalciferol (D-3) 1,000 UNIT (25MCG) TABLET PO SCH (09:04)
[2020-12-01] MEDS: lisinopriL 20 MG TABLET PO SCH (09:04)
[2020-12-01] MEDS: Aspirin Enteric Coated 81 MG Tablet PO SCH (09:04)
[2020-12-01] MEDS: FLUoxetine 20 MG CAPSULE PO SCH ×2 (09:04)
[2020-12-01] MEDS: carvediloL 6.25 MG TABLET PO SCH ×2 (09:04→17:03)
[2020-12-01] MEDS: Isosorbide MONOnitrate (24 HR) 60 MG TAB.ER.24H PO SCH (09:04)
[2020-12-01] MEDS: SODIUM ZIRCONIUM CYCLOSILICATE 5 GM POWD.PACK PO SCH (09:05)
[2020-12-01] MEDS ORDERED: Furosemide 40 MG/4 ML VIAL IVP ONE (13:28)
[2020-12-01 13:46] LABS: Hematocrit 35.3 % (37.5-50.1); Hemoglobin 10.8 g/dL (12.9-16.9); Mean Corpuscular HGB Conc 30.6 g/dL (31.6-35.5); Mean Corpuscular Hemoglobin 27.4 pg (28.0-33.3); Mean Corpuscular Volume 89.6 fL (83.0-100.0); Mean Platelet Volume 12.1 fL (9.4-12.4); Platelet Count 133 K/mcL (140-400); Red Blood Count 3.94 M/mcL (4.19-5.50); Red Cell Distribution Width 14.6 % (11.5-14.5); White Blood Count 10.4 K/mcL (4.3-11.1)
[2020-12-01 14:06] LABS: Calcium 8.8 mg/dL (8.6-10.3); Potassium 3.9 mEq/L (3.5-5.1)
[2020-12-01] MEDS: *HR* Heparin 5,000 UNIT/ML VIAL SQ SCH (17:02)
[2020-12-01] MEDS: rOPINIRole 1 MG TABLET PO SCH (21:25)
[2020-12-02 02:23] LABS: Basophils # 0.1 K/mcL (0.0-0.2); Basophils % 0.7 %; Eosinophils # 0.2 K/mcL (0.0-0.6); Eosinophils % 2.7 %; Hematocrit 32.4 % (37.5-50.1); Hemoglobin 10.1 g/dL (12.9-16.9); Immature Granulocytes % 0.5 % (0-4); Lymphocytes # 1.1 K/mcL (0.6-4.6); Lymphocytes % 13.5 %; Mean Corpuscular HGB Conc 31.2 g/dL (31.6-35.5); Mean Corpuscular Hemoglobin 27.4 pg (28.0-33.3); Mean Platelet Volume 12.6 fL (9.4-12.4); Monocytes # 0.7 K/mcL (0.0-1.3); Monocytes % 8.3 %; Neutrophils # 6.3 K/mcL (1.6-8.9); Platelet Count 110 K/mcL (140-400); Red Blood Count 3.68 M/mcL (4.19-5.50); Red Cell Distribution Width 14.5 % (11.5-14.5); Segmented Neutrophils % 74.3 %; White Blood Count 8.4 K/mcL (4.3-11.1)
[2020-12-02 02:41] LABS: Calcium 8.8 mg/dL (8.6-10.3); Potassium 3.7 mEq/L (3.5-5.1)
[2020-12-02] MEDS: *HR* Heparin 5,000 UNIT/ML VIAL SQ SCH ×2 (05:43→16:56)
[2020-12-02] MEDS: Aspirin Enteric Coated 81 MG Tablet PO SCH (07:20)
[2020-12-02] MEDS: Cholecalciferol (D-3) 1,000 UNIT (25MCG) TABLET PO SCH (07:20)
[2020-12-02] MEDS: carvediloL 6.25 MG TABLET PO SCH ×2 (07:21→16:56)
[2020-12-02] MEDS: Isosorbide MONOnitrate (24 HR) 60 MG TAB.ER.24H PO SCH (07:21)
[2020-12-02] MEDS: Insulin LISPRO 300 UNITS/3 ML VIAL SUBQ SCH ×4 (07:21→20:13)
[2020-12-02] MEDS: FLUoxetine 20 MG CAPSULE PO SCH ×2 (07:21)
[2020-12-02] MEDS: lisinopriL 20 MG TABLET PO SCH (07:21)
[2020-12-02] MEDS: SODIUM ZIRCONIUM CYCLOSILICATE 5 GM POWD.PACK PO SCH (07:22)
[2020-12-02] MEDS: Bumetanide 1 MG/4 ML VIAL IVP SCH ×2 (09:19→16:56)
[2020-12-02] MEDS: rOPINIRole 1 MG TABLET PO SCH (20:27)
[2020-12-03 04:59] LABS: Basophils # 0.1 K/mcL (0.0-0.2); Basophils % 0.6 %; Eosinophils # 0.2 K/mcL (0.0-0.6); Eosinophils % 2.5 %; Hematocrit 33.6 % (37.5-50.1); Hemoglobin 10.2 g/dL (12.9-16.9); Immature Granulocytes % 0.5 % (0-4); Lymphocytes # 1.1 K/mcL (0.6-4.6); Lymphocytes % 13.5 %; Mean Corpuscular HGB Conc 30.4 g/dL (31.6-35.5); Mean Corpuscular Hemoglobin 27.2 pg (28.0-33.3); Mean Corpuscular Volume 89.6 fL (83.0-100.0); Mean Platelet Volume 12.6 fL (9.4-12.4); Monocytes # 0.8 K/mcL (0.0-1.3); Neutrophils # 6.2 K/mcL (1.6-8.9); Platelet Count 108 K/mcL (140-400); Red Blood Count 3.75 M/mcL (4.19-5.50); Red Cell Distribution Width 14.7 % (11.5-14.5); Segmented Neutrophils % 73.9 %; White Blood Count 8.4 K/mcL (4.3-11.1)
[2020-12-03] MEDS: *HR* Heparin 5,000 UNIT/ML VIAL SQ SCH ×2 (05:10→17:07)
[2020-12-03 05:20] LABS: Calcium 8.7 mg/dL (8.6-10.3); Potassium 3.9 mEq/L (3.5-5.1)
[2020-12-03] MEDS: FLUoxetine 20 MG CAPSULE PO SCH ×2 (08:25→08:29)
[2020-12-03] MEDS: SODIUM ZIRCONIUM CYCLOSILICATE 5 GM POWD.PACK PO SCH (08:25)
[2020-12-03] MEDS: Cholecalciferol (D-3) 1,000 UNIT (25MCG) TABLET PO SCH (08:26)
[2020-12-03] MEDS: Aspirin Enteric Coated 81 MG Tablet PO SCH (08:26)
[2020-12-03] MEDS: Isosorbide MONOnitrate (24 HR) 60 MG TAB.ER.24H PO SCH (08:26)
[2020-12-03] MEDS: carvediloL 6.25 MG TABLET PO SCH ×2 (08:26→17:07)
[2020-12-03] MEDS: Bumetanide 1 MG/4 ML VIAL IVP SCH ×2 (08:27→17:12)
[2020-12-03] MEDS: lisinopriL 20 MG TABLET PO SCH (08:27)
[2020-12-03] MEDS: Insulin LISPRO 300 UNITS/3 ML VIAL SUBQ SCH ×4 (08:28→21:03)
[2020-12-03] MEDS: metOLazone 5 MG TABLET PO SCH (17:07)
[2020-12-03] MEDS: rOPINIRole 1 MG TABLET PO SCH (21:06)
[2020-12-04 05:29] LABS: Basophils # 0.1 K/mcL (0.0-0.2); Basophils % 0.7 %; Eosinophils # 0.2 K/mcL (0.0-0.6); Eosinophils % 2.6 %; Hematocrit 34.3 % (37.5-50.1); Hemoglobin 10.8 g/dL (12.9-16.9); Immature Granulocytes % 0.3 % (0-4); Lymphocytes # 1.1 K/mcL (0.6-4.6); Mean Corpuscular HGB Conc 31.5 g/dL (31.6-35.5); Mean Corpuscular Hemoglobin 27.8 pg (28.0-33.3); Mean Corpuscular Volume 88.4 fL (83.0-100.0); Mean Platelet Volume 12.1 fL (9.4-12.4); Monocytes # 0.7 K/mcL (0.0-1.3); Monocytes % 9.3 %; Neutrophils # 5.5 K/mcL (1.6-8.9); Platelet Count 114 K/mcL (140-400); Red Blood Count 3.88 M/mcL (4.19-5.50); Red Cell Distribution Width 14.5 % (11.5-14.5); Segmented Neutrophils % 73.1 %; White Blood Count 7.6 K/mcL (4.3-11.1)
[2020-12-04] MEDS: *HR* Heparin 5,000 UNIT/ML VIAL SQ SCH ×2 (05:32→17:16)
[2020-12-04 05:53] LABS: Calcium 8.7 mg/dL (8.6-10.3); Potassium 3.9 mEq/L (3.5-5.1)
[2020-12-04] MEDS: Isosorbide MONOnitrate (24 HR) 60 MG TAB.ER.24H PO SCH (08:57)
[2020-12-04] MEDS: Aspirin Enteric Coated 81 MG Tablet PO SCH (08:57)
[2020-12-04] MEDS: carvediloL 6.25 MG TABLET PO SCH ×2 (08:58→17:16)
[2020-12-04] MEDS: FLUoxetine 20 MG CAPSULE PO SCH ×2 (08:58)
[2020-12-04] MEDS: Cholecalciferol (D-3) 1,000 UNIT (25MCG) TABLET PO SCH (08:58)
[2020-12-04] MEDS: Bumetanide 1 MG/4 ML VIAL IVP SCH ×2 (08:59→17:16)
[2020-12-04] MEDS: metOLazone 5 MG TABLET PO SCH (08:59)
[2020-12-04] MEDS: lisinopriL 20 MG TABLET PO SCH (08:59)
[2020-12-04] MEDS: SODIUM ZIRCONIUM CYCLOSILICATE 5 GM POWD.PACK PO SCH (09:00)
[2020-12-04] MEDS: Insulin LISPRO 300 UNITS/3 ML VIAL SUBQ SCH ×4 (09:01→21:05)
[2020-12-04] MEDS: rOPINIRole 1 MG TABLET PO SCH (20:51)
[2020-12-05] MEDS: *HR* Heparin 5,000 UNIT/ML VIAL SQ SCH (05:37)
[2020-12-05 06:41] LABS: Basophils # 0.1 K/mcL (0.0-0.2); Basophils % 0.6 %; Eosinophils # 0.2 K/mcL (0.0-0.6); Eosinophils % 2.8 %; Hematocrit 34.7 % (37.5-50.1); Hemoglobin 10.6 g/dL (12.9-16.9); Immature Granulocytes % 0.5 % (0-4); Lymphocytes % 12.3 %; Mean Corpuscular HGB Conc 30.5 g/dL (31.6-35.5); Mean Corpuscular Hemoglobin 26.9 pg (28.0-33.3); Mean Corpuscular Volume 88.1 fL (83.0-100.0); Mean Platelet Volume 12.8 fL (9.4-12.4); Monocytes # 0.8 K/mcL (0.0-1.3); Monocytes % 9.9 %; Platelet Count 111 K/mcL (140-400); Red Blood Count 3.94 M/mcL (4.19-5.50); Red Cell Distribution Width 14.5 % (11.5-14.5); Segmented Neutrophils % 73.9 %; White Blood Count 8.1 K/mcL (4.3-11.1)
[2020-12-05 06:58] LABS: Potassium 3.7 mEq/L (3.5-5.1)
[2020-12-05 07:31] VITALS: BP 173/63; PULSE 51; TEMP 97.5; O2SAT 98
[2020-12-05] MEDS: Insulin LISPRO 300 UNITS/3 ML VIAL SUBQ SCH (08:14)
[2020-12-05] MEDS: Bumetanide 1 MG/4 ML VIAL IVP SCH (08:15)
[2020-12-05] MEDS: carvediloL 6.25 MG TABLET PO SCH (08:15)
[2020-12-05] MEDS: SODIUM ZIRCONIUM CYCLOSILICATE 5 GM POWD.PACK PO SCH (08:16)
[2020-12-05] MEDS: Aspirin Enteric Coated 81 MG Tablet PO SCH (08:16)
[2020-12-05] MEDS: Isosorbide MONOnitrate (24 HR) 60 MG TAB.ER.24H PO SCH (08:16)
[2020-12-05] MEDS: FLUoxetine 20 MG CAPSULE PO SCH ×2 (08:17→08:18)
[2020-12-05] MEDS: lisinopriL 20 MG TABLET PO SCH (08:18)
[2020-12-05] MEDS: Cholecalciferol (D-3) 1,000 UNIT (25MCG) TABLET PO SCH (08:18)
[2020-12-05] MEDS: metOLazone 5 MG TABLET PO SCH (08:18)
== END 2020-12-05 11:59 | disposition home or self-care (01) | DRG 291 ==
LOC: SUATTDRO → EMEROOARM 09:13 → 2ANU 09:13 → SUATTDRO 12:16 → 2ANU 13:02 → SUATTDRO 12-02 14:58
PROVIDERS: ADMIT Family Medicine; ATTEND Internal Medicine

== ENCOUNTER 2021-01-28 12:54 | Inpatient (IN) ==
[2021-01-28] MEDS ORDERED: Bumetanide 1 MG/4 ML VIAL IVP ONE (13:28)
[2021-01-28 13:46] LABS: Basophils # 0.1 K/mcL (0.0-0.2); Basophils % 1.1 %; Eosinophils # 0.3 K/mcL (0.0-0.6); Eosinophils % 3.7 %; Hematocrit 33.1 % (37.5-50.1); Hemoglobin 10.1 g/dL (12.9-16.9); Lymphocytes # 0.9 K/mcL (0.6-4.6); Lymphocytes % 11.2 %; Mean Corpuscular HGB Conc 30.5 g/dL (31.6-35.5); Mean Corpuscular Hemoglobin 26.6 pg (28.0-33.3); Mean Corpuscular Volume 87.3 fL (83.0-100.0); Mean Platelet Volume 11.8 fL (9.4-12.4); Monocytes # 0.7 K/mcL (0.0-1.3); Monocytes % 8.3 %; Neutrophils # 6.1 K/mcL (1.6-8.9); Platelet Count 136 K/mcL (140-400); Red Blood Count 3.79 M/mcL (4.19-5.50); Red Cell Distribution Width 15.9 % (11.5-14.5); Segmented Neutrophils % 74.7 %; White Blood Count 8.2 K/mcL (4.3-11.1)
[2021-01-28 14:15] LABS: Troponin I 0.04 ng/mL (< 0.04)
[2021-01-28 14:22] LABS: Calcium 8.6 mg/dL (8.6-10.3)
[2021-01-28] MEDS ORDERED: Naloxone 0.4 MG/ML INJ IVP PRN (15:26)
[2021-01-28] MEDS ORDERED: Dextrose Gel 15 GM/37.5 ML TUBE PO PRN ×2 (15:38)
[2021-01-28] MEDS ORDERED: *HR* Dextrose 50 % in Water (Vial) 50 ML VIAL IVP PRN (15:38)
[2021-01-28] MEDS ORDERED: D5% in Water 1,000 ML IVC PRN (15:38)
[2021-01-28] MEDS: Bumetanide 1 MG/4 ML VIAL IVP SCH (17:24)
[2021-01-28] MEDS: Insulin LISPRO 300 UNITS/3 ML VIAL SUBQ SCH (17:25)
[2021-01-28] MEDS ORDERED: Perflutren Lipid Microsphere 1.3 ML in 0.9 % Sodium Chloride 8.7 ML IVP PRN (17:32)
[2021-01-28] MEDS: carvediloL 6.25 MG TABLET PO SCH (18:24)
[2021-01-28] MEDS: rOPINIRole 1 MG TABLET PO SCH (21:26)
[2021-01-28] MEDS: Insulin DETEMIR 100 UNIT/ML X5UNITS SUBQ SCH (21:28)
[2021-01-29 00:32] LABS: Basophils # 0.1 K/mcL (0.0-0.2); Basophils % 0.7 %; Eosinophils # 0.4 K/mcL (0.0-0.6); Eosinophils % 4.8 %; Hemoglobin 10.2 g/dL (12.9-16.9); Immature Granulocytes % 0.6 % (0-4); Lymphocytes # 1.1 K/mcL (0.6-4.6); Lymphocytes % 13.9 %; Mean Corpuscular HGB Conc 31.9 g/dL (31.6-35.5); Mean Corpuscular Hemoglobin 27.1 pg (28.0-33.3); Mean Corpuscular Volume 84.9 fL (83.0-100.0); Mean Platelet Volume 11.8 fL (9.4-12.4); Monocytes # 0.6 K/mcL (0.0-1.3); Monocytes % 7.4 %; Neutrophils # 5.8 K/mcL (1.6-8.9); Platelet Count 130 K/mcL (140-400); Red Blood Count 3.77 M/mcL (4.19-5.50); Red Cell Distribution Width 15.8 % (11.5-14.5); Segmented Neutrophils % 72.6 %; White Blood Count 8.1 K/mcL (4.3-11.1)
[2021-01-29 00:51] LABS: Calcium 8.6 mg/dL (8.6-10.3); Potassium 3.6 mEq/L (3.5-5.1)
[2021-01-29] MEDS ORDERED: carvediloL 6.25 MG TABLET PO SCH (08:00)
[2021-01-29] MEDS: Bumetanide 1 MG/4 ML VIAL IVP SCH ×2 (09:40→17:09)
[2021-01-29] MEDS: Cholecalciferol (D-3) 1,000 UNIT (25MCG) TABLET PO SCH (09:41)
[2021-01-29] MEDS: carvediloL 6.25 MG TABLET PO SCH ×2 (09:41→17:09)
[2021-01-29] MEDS: FLUoxetine 20 MG CAPSULE PO SCH (09:41)
[2021-01-29] MEDS: Insulin LISPRO 300 UNITS/3 ML VIAL SUBQ SCH ×3 (09:41→17:13)
[2021-01-29] MEDS: lisinopriL 20 MG TABLET PO SCH (09:41)
[2021-01-29] MEDS: Aspirin Enteric Coated 81 MG Tablet PO SCH (09:41)
[2021-01-29] MEDS: Isosorbide MONOnitrate (24 HR) 60 MG TAB.ER.24H PO SCH (09:41)
[2021-01-29] MEDS: metOLazone 5 MG TABLET PO SCH (13:39)
[2021-01-29] MEDS: Insulin DETEMIR 100 UNIT/ML X5UNITS SUBQ SCH (21:45)
[2021-01-29] MEDS: rOPINIRole 1 MG TABLET PO SCH (21:45)
[2021-01-30 08:02] LABS: Basophils # 0.1 K/mcL (0.0-0.2); Basophils % 0.6 %; Eosinophils # 0.4 K/mcL (0.0-0.6); Eosinophils % 4.8 %; Hematocrit 35.4 % (37.5-50.1); Hemoglobin 10.8 g/dL (12.9-16.9); Immature Granulocytes % 0.6 % (0-4); Lymphocytes # 0.9 K/mcL (0.6-4.6); Lymphocytes % 10.8 %; Mean Corpuscular HGB Conc 30.5 g/dL (31.6-35.5); Mean Corpuscular Hemoglobin 26.2 pg (28.0-33.3); Mean Corpuscular Volume 85.7 fL (83.0-100.0); Mean Platelet Volume 11.6 fL (9.4-12.4); Monocytes # 0.7 K/mcL (0.0-1.3); Monocytes % 8.2 %; Neutrophils # 6.4 K/mcL (1.6-8.9); Platelet Count 140 K/mcL (140-400); Red Blood Count 4.13 M/mcL (4.19-5.50); Red Cell Distribution Width 15.9 % (11.5-14.5); White Blood Count 8.5 K/mcL (4.3-11.1)
[2021-01-30 08:21] LABS: Calcium 9.3 mg/dL (8.6-10.3); Potassium 3.6 mEq/L (3.5-5.1)
[2021-01-30] MEDS: lisinopriL 20 MG TABLET PO SCH (08:37)
[2021-01-30] MEDS: Aspirin Enteric Coated 81 MG Tablet PO SCH (08:38)
[2021-01-30] MEDS: carvediloL 6.25 MG TABLET PO SCH ×2 (08:38→17:30)
[2021-01-30] MEDS: Bumetanide 1 MG/4 ML VIAL IVP SCH ×2 (08:38→17:30)
[2021-01-30] MEDS: metOLazone 5 MG TABLET PO SCH (08:38)
[2021-01-30] MEDS: Cholecalciferol (D-3) 1,000 UNIT (25MCG) TABLET PO SCH (08:38)
[2021-01-30] MEDS: FLUoxetine 20 MG CAPSULE PO SCH (08:38)
[2021-01-30] MEDS: Isosorbide MONOnitrate (24 HR) 60 MG TAB.ER.24H PO SCH (08:39)
[2021-01-30] MEDS: Insulin LISPRO 300 UNITS/3 ML VIAL SUBQ SCH ×2 (08:39→16:49)
[2021-01-30] MEDS: rOPINIRole 1 MG TABLET PO SCH (20:41)
[2021-01-30] MEDS: Insulin DETEMIR 100 UNIT/ML X5UNITS SUBQ SCH (20:41)
[2021-01-31 02:02] LABS: Basophils # 0.1 K/mcL (0.0-0.2); Basophils % 0.8 %; Eosinophils # 0.4 K/mcL (0.0-0.6); Eosinophils % 4.6 %; Hematocrit 31.9 % (37.5-50.1); Hemoglobin 9.8 g/dL (12.9-16.9); Lymphocytes # 1.1 K/mcL (0.6-4.6); Lymphocytes % 13.7 %; Mean Corpuscular HGB Conc 30.7 g/dL (31.6-35.5); Mean Corpuscular Hemoglobin 26.3 pg (28.0-33.3); Mean Corpuscular Volume 85.5 fL (83.0-100.0); Mean Platelet Volume 11.2 fL (9.4-12.4); Monocytes # 0.7 K/mcL (0.0-1.3); Monocytes % 8.9 %; Neutrophils # 5.5 K/mcL (1.6-8.9); Platelet Count 134 K/mcL (140-400); Red Blood Count 3.73 M/mcL (4.19-5.50); Red Cell Distribution Width 15.9 % (11.5-14.5); White Blood Count 7.8 K/mcL (4.3-11.1)
[2021-01-31 02:19] LABS: Calcium 8.6 mg/dL (8.6-10.3); Potassium 3.8 mEq/L (3.5-5.1)
[2021-01-31 07:03] VITALS: BP 162/96
[2021-01-31 07:55] LABS: Magnesium 1.7 mg/dL (1.6-2.6)
[2021-01-31] MEDS: Insulin LISPRO 300 UNITS/3 ML VIAL SUBQ SCH (07:57)
[2021-01-31] MEDS: Bumetanide 1 MG/4 ML VIAL IVP SCH (07:58)
[2021-01-31] MEDS: Cholecalciferol (D-3) 1,000 UNIT (25MCG) TABLET PO SCH (07:59)
[2021-01-31] MEDS: carvediloL 6.25 MG TABLET PO SCH (07:59)
[2021-01-31] MEDS: Isosorbide MONOnitrate (24 HR) 60 MG TAB.ER.24H PO SCH (07:59)
[2021-01-31] MEDS: FLUoxetine 20 MG CAPSULE PO SCH (07:59)
[2021-01-31] MEDS: Aspirin Enteric Coated 81 MG Tablet PO SCH (07:59)
[2021-01-31] MEDS: metOLazone 5 MG TABLET PO SCH (08:00)
[2021-01-31] MEDS: lisinopriL 20 MG TABLET PO SCH (08:00)
== END 2021-01-31 10:35 | disposition home or self-care (01) | DRG 291 ==
LOC: EMEROOARM 12:54 → 2ANU 12:54 → SUATTDRO 15:08 → 2ANU 15:54
PROVIDERS: ADMIT Internal Medicine; ATTEND Internal Medicine

== ENCOUNTER 2021-12-08 20:59 | Inpatient (IN) ==
[2021-12-08] MEDS ORDERED: Furosemide 40 MG/4 ML VIAL IVP ONE (21:17)
[2021-12-08 21:31] LABS: Basophils % 0.4 %; Eosinophils # 0.4 K/mcL (0.0-0.6); Eosinophils % 3.2 %; Hematocrit 33.8 % (37.5-50.1); Hemoglobin 10.7 g/dL (12.9-16.9); Immature Granulocytes % 1.4 % (0-4); Lymphocytes # 1.4 K/mcL (0.6-4.6); Lymphocytes % 12.3 %; Mean Corpuscular HGB Conc 31.7 g/dL (31.6-35.5); Mean Corpuscular Hemoglobin 26.6 pg (28.0-33.3); Mean Corpuscular Volume 84.1 fL (83.0-100.0); Mean Platelet Volume 11.1 fL (9.4-12.4); Monocytes # 0.8 K/mcL (0.0-1.3); Monocytes % 7.2 %; Neutrophils # 8.3 K/mcL (1.6-8.9); Platelet Count 137 K/mcL (140-400); Red Blood Count 4.02 M/mcL (4.19-5.50); Red Cell Distribution Width 15.8 % (11.5-14.5); Segmented Neutrophils % 75.5 %
[2021-12-08 21:39] LABS: INR 1.3; Prothrombin Time 14.7 Seconds (9.4-12.1)
[2021-12-08 21:41] LABS: Activated Partial Thrombo Time 34.7 Seconds (26.0-36.0)
[2021-12-08 21:53] LABS: Albumin 3.9 g/dL (3.5-5.7); Albumin/Globulin Ratio 1.2 (1.1-2.2); Bilirubin,Direct 0.1 mg/dL (0.0-0.2); Bilirubin,Indirect 0.5 mg/dL (0.0-1.0); Bilirubin,Total 0.6 mg/dL (0.3-1.0); Calcium 9.2 mg/dL (8.6-10.3); Globulin 3.2 g/dL (2.4-3.5); Total Protein 7.1 g/dL (6.4-8.9)
[2021-12-08 22:02] LABS: Troponin I 0.07 ng/mL (< 0.04)
[2021-12-08] MEDS ORDERED: Ipratropium/Albuterol Neb 3 ML IH ONE (22:18)
[2021-12-08] MEDS ORDERED: methylPREDNISolone 125 MG/2 ML VIAL IVP ONE (22:18)
[2021-12-08 22:52] LABS: Bilirubin,Urine Negative (Negative); Blood,Urine Small (Negative); Clarity,Urine Clear (Clear); Color,Urine Colorless (Yellow); Glucose,Urine (UA) 100 mg/dL (Normal); Hyaline Casts,Urine Few per lpf (None Seen); Ketones,Urine Negative (Negative); Leukocyte Esterase,Urine Negative (Negative); Nitrite,Urine Negative (Negative); PH,Urine 6.5 pH Units (5.0-8.0); Protein,Urine 200 mg/dL (Neg-Trace); RBC,Urine 0-3 per hpf (0-3); Specific Gravity,Urine 1.011 (1.010-1.025); Squamous Epithelial Cell,Urine Few per hpf (None-Few); Urobilinogen,Urine Normal (Normal); WBC,Urine 0-3 per hpf (0-3)
[2021-12-08 23:24] LABS: Influenza A PCR Negative (Negative); Influenza B PCR Negative (Negative); Resp. Syncytial Virus PCR Negative (Negative)
[2021-12-08 23:26] LABS: SARS-CoV-2 by PCR (In House) Negative (Negative)
[2021-12-09] MEDS ORDERED: Naloxone 0.4 MG/ML INJ IVP PRN (00:20)
[2021-12-09] MEDS ORDERED: Ondansetron 4 MG/2 ML VIAL IVP PRN (00:20)
[2021-12-09] MEDS ORDERED: Acetaminophen 325 MG TABLET PO PRN (00:20)
[2021-12-09] MEDS ORDERED: Dextrose 4 GM Chewable Tablets PO PRN ×2 (00:22)
[2021-12-09] MEDS ORDERED: D5% in Water 1,000 ML IVC PRN (00:22)
[2021-12-09] MEDS ORDERED: *HR* Dextrose 50 % in Water (Syg) 50 ML SYRINGE IVP PRN (00:22)
[2021-12-09] MEDS ORDERED: Albuterol 2.5 MG/3 ML NEBULIZER IH PRN (01:57)
[2021-12-09] MEDS ORDERED: Perflutren Lipid Microsphere 1.3 ML in 0.9 % Sodium Chloride 8.7 ML IVP PRN (02:16)
[2021-12-09] MEDS: Azithromycin 500 MG in 0.9 % Sodium Chloride 250 ML IVPB SCH (02:22)
[2021-12-09] MEDS ORDERED: Ipratropium/Albuterol Neb 3 ML ONE (03:22)
[2021-12-09] MEDS: Ipratropium/Albuterol Neb 3 ML IH SCH ×4 (03:28→23:01)
[2021-12-09 05:38] LABS: Basophils % 0.3 %; Eosinophils % 0.3 %; Hematocrit 33.6 % (37.5-50.1); Hemoglobin 10.5 g/dL (12.9-16.9); Immature Granulocytes % 1.6 % (0-4); Lymphocytes # 0.5 K/mcL (0.6-4.6); Lymphocytes % 4.2 %; Mean Corpuscular HGB Conc 31.3 g/dL (31.6-35.5); Mean Corpuscular Hemoglobin 26.4 pg (28.0-33.3); Mean Corpuscular Volume 84.4 fL (83.0-100.0); Mean Platelet Volume 12.1 fL (9.4-12.4); Monocytes # 0.1 K/mcL (0.0-1.3); Monocytes % 0.8 %; Neutrophils # 10.7 K/mcL (1.6-8.9); Platelet Count 123 K/mcL (140-400); Red Blood Count 3.98 M/mcL (4.19-5.50); Red Cell Distribution Width 15.8 % (11.5-14.5); Segmented Neutrophils % 92.8 %; White Blood Count 11.6 K/mcL (4.3-11.1)
[2021-12-09] MEDS ORDERED: *HR* Heparin 5,000 UNIT/ML VIAL SQ SCH (06:00)
[2021-12-09 06:02] LABS: Albumin 3.7 g/dL (3.5-5.7); Albumin/Globulin Ratio 1.2 (1.1-2.2); Bilirubin,Total 0.7 mg/dL (0.3-1.0); Calcium 9.1 mg/dL (8.6-10.3); Globulin 3.2 g/dL (2.4-3.5); Magnesium 1.4 mg/dL (1.6-2.6); Phosphorous 3.9 mg/dL (2.7-4.5); Total Protein 6.9 g/dL (6.4-8.9)
[2021-12-09] MEDS: Furosemide 40 MG/4 ML VIAL IVP SCH ×2 (08:10→17:16)
[2021-12-09] MEDS: predniSONE 20 MG TABLET PO SCH (08:10)
[2021-12-09] MEDS: Insulin LISPRO 300 UNITS/3 ML VIAL SUBQ SCH ×8 (08:11→20:45)
[2021-12-09] MEDS ORDERED: Insulin DETEMIR 100 UNIT/ML X5UNITS SUBQ SCH (09:00)
[2021-12-09] MEDS: SODIUM ZIRCONIUM CYCLOSILICATE 5 GM POWD.PACK PO SCH (10:32)
[2021-12-09] MEDS: *HR* Heparin 5,000 UNIT/ML VIAL SQ SCH ×2 (13:42→20:45)
[2021-12-09] MEDS ORDERED: Insulin Human Regular 10 UNIT in 0.9 % Sodium Chloride 10 ML IV ONE (15:26)
[2021-12-09] MEDS: Insulin DETEMIR 100 UNIT/ML X5UNITS SUBQ SCH (20:45)
[2021-12-09] MEDS: rOPINIRole 2 MG, rOPINIRole 3 MG PO SCH (20:45)
[2021-12-09] MEDS: Melatonin 3 MG TABLET PO PRN (20:52)
[2021-12-09] MEDS ORDERED: Insulin LISPRO 300 UNITS/3 ML VIAL SUBQ SCH (21:00)
[2021-12-09] MEDS ORDERED: rOPINIRole 1 MG TABLET PO SCH (21:00)
[2021-12-10 01:15] LABS: Basophils % 0.1 %; Hematocrit 31.8 % (37.5-50.1); Hemoglobin 10.2 g/dL (12.9-16.9); Immature Granulocytes % 1.2 % (0-4); Lymphocytes % 6.2 %; Mean Corpuscular HGB Conc 32.1 g/dL (31.6-35.5); Mean Corpuscular Hemoglobin 26.3 pg (28.0-33.3); Mean Platelet Volume 10.9 fL (9.4-12.4); Monocytes % 6.7 %; Neutrophils # 13.4 K/mcL (1.6-8.9); Platelet Count 122 K/mcL (140-400); Red Blood Count 3.88 M/mcL (4.19-5.50); Red Cell Distribution Width 15.8 % (11.5-14.5); Segmented Neutrophils % 85.8 %; White Blood Count 15.6 K/mcL (4.3-11.1)
[2021-12-10 01:32] LABS: Calcium 9.2 mg/dL (8.6-10.3); Potassium 5.5 mEq/L (3.5-5.1)
[2021-12-10] MEDS: Azithromycin 500 MG in 0.9 % Sodium Chloride 250 ML IVPB SCH (02:51)
[2021-12-10] MEDS: Ipratropium/Albuterol Neb 3 ML IH SCH ×4 (04:03→22:58)
[2021-12-10] MEDS: *HR* Heparin 5,000 UNIT/ML VIAL SQ SCH ×3 (05:59→20:13)
[2021-12-10] MEDS ORDERED: Bumetanide 1 MG TABLET PO SCH (08:00)
[2021-12-10] MEDS ORDERED: FLUoxetine 20 MG CAPSULE PO SCH (09:00)
[2021-12-10] MEDS: SODIUM ZIRCONIUM CYCLOSILICATE 5 GM POWD.PACK PO SCH (09:01)
[2021-12-10] MEDS: Insulin LISPRO 300 UNITS/3 ML VIAL SUBQ SCH ×7 (09:01→20:12)
[2021-12-10] MEDS: Isosorbide MONOnitrate (24 HR) 60 MG TAB.ER.24H PO SCH (09:03)
[2021-12-10] MEDS: carvediloL 6.25 MG TABLET PO SCH ×2 (09:03→16:03)
[2021-12-10] MEDS: Aspirin Enteric Coated 81 MG Tablet PO SCH (09:03)
[2021-12-10] MEDS: predniSONE 20 MG TABLET PO SCH (09:03)
[2021-12-10] MEDS: Cholecalciferol (D-3) 1,000 UNIT (25MCG) TABLET PO SCH (09:03)
[2021-12-10] MEDS: Insulin DETEMIR 100 UNIT/ML X5UNITS SUBQ SCH ×2 (09:09→20:12)
[2021-12-10] MEDS: Bumetanide 1 MG/4 ML VIAL IVP SCH (16:03)
[2021-12-10] MEDS: rOPINIRole 2 MG, rOPINIRole 3 MG PO SCH (20:13)
[2021-12-10] MEDS: Melatonin 3 MG TABLET PO PRN (20:13)
[2021-12-11 02:21] LABS: Basophils % 0.1 %; Hemoglobin 9.7 g/dL (12.9-16.9); Immature Granulocytes % 1.7 % (0-4); Lymphocytes # 0.8 K/mcL (0.6-4.6); Lymphocytes % 6.5 %; Mean Corpuscular HGB Conc 31.3 g/dL (31.6-35.5); Mean Corpuscular Hemoglobin 26.4 pg (28.0-33.3); Mean Corpuscular Volume 84.5 fL (83.0-100.0); Mean Platelet Volume 11.6 fL (9.4-12.4); Monocytes # 0.7 K/mcL (0.0-1.3); Monocytes % 5.7 %; Neutrophils # 11.1 K/mcL (1.6-8.9); Platelet Count 126 K/mcL (140-400); Red Blood Count 3.67 M/mcL (4.19-5.50); Red Cell Distribution Width 15.8 % (11.5-14.5); White Blood Count 12.9 K/mcL (4.3-11.1)
[2021-12-11 02:24] LABS: Calcium 8.8 mg/dL (8.6-10.3); Potassium 5.1 mEq/L (3.5-5.1)
[2021-12-11] MEDS: Ipratropium/Albuterol Neb 3 ML IH SCH ×2 (04:16→10:57)
[2021-12-11] MEDS: *HR* Heparin 5,000 UNIT/ML VIAL SQ SCH (05:25)
[2021-12-11 06:51] VITALS: PULSE 62
[2021-12-11] MEDS: Insulin LISPRO 300 UNITS/3 ML VIAL SUBQ SCH ×4 (08:39→12:09)
[2021-12-11] MEDS: predniSONE 20 MG TABLET PO SCH (08:40)
[2021-12-11] MEDS: Cholecalciferol (D-3) 1,000 UNIT (25MCG) TABLET PO SCH (08:40)
[2021-12-11] MEDS: Bumetanide 1 MG/4 ML VIAL IVP SCH (08:40)
[2021-12-11] MEDS: Aspirin Enteric Coated 81 MG Tablet PO SCH (08:41)
[2021-12-11] MEDS: Insulin DETEMIR 100 UNIT/ML X5UNITS SUBQ SCH (08:41)
[2021-12-11] MEDS: SODIUM ZIRCONIUM CYCLOSILICATE 5 GM POWD.PACK PO SCH (08:41)
[2021-12-11] MEDS: carvediloL 6.25 MG TABLET PO SCH (08:41)
[2021-12-11] MEDS: Isosorbide MONOnitrate (24 HR) 60 MG TAB.ER.24H PO SCH (08:41)
[2021-12-11] MEDS ORDERED: Azithromycin 250 MG TABLET PO SCH (09:00)
[2021-12-11 12:05] VITALS: BP 146/77; TEMP 98.3; O2SAT 97
== END 2021-12-11 13:05 | disposition home or self-care (01) | DRG 291 ==
LOC: EMEROOARM 20:59 → 2ANU 20:59 → SUATTDRO 23:38 → 2ANU 23:59 → SUATTDRO 12-10 07:38
PROVIDERS: ADMIT Internal Medicine; ATTEND General Practice